=== PATIENT | female | born 1985 | race Caucasian/White ===

== ENCOUNTER → 2021-03-21 | Day surgery (SDC) | payer MEDICARE, OTHER ==
[~2021-03-21] MED LIST: BIOTIN800 MCG PO; CLARITIN 10MG T10 MG PO; DETROL2 MG PO; ELMIRON100 MG PO; IBUPROFEN800 MG PO; LOSARTAN-HCTZ1 EAC2 PO; NAPROXEN 250 M250 MG PO; NORCO 5-325 TA1 EACH PO; ONCE DAILY1 EACH PO; PREMARIN 1.251.25 MG PO; PYRIDIUM200 MG PO; SIMVASTATIN10 MG PO; TOPAMAX100 MG PO; VENLAFAXINE HCL75 MG PO; VITAMIN D32000 UNI1 PO; WELLBUTRIN XL150 MG PO; ZANAFLEX4 MG PO
== END | disposition home or self-care (01) ==
LOC: OR 08:00
DX: K29.71 Gastritis, unspecified, with bleeding (principal); K21.00 Gastro-esophageal reflux disease with esophagitis, without bleeding; K29.80 Duodenitis without bleeding; K64.0 First degree hemorrhoids; E78.00 Pure hypercholesterolemia, unspecified; G47.33 Obstructive sleep apnea (adult) (pediatric); E66.01 Morbid (severe) obesity due to excess calories; Z68.43 Body mass index [BMI] 50.0-59.9, adult; Z87.891 Personal history of nicotine dependence; Z91.012 Allergy to eggs
CPT/HCPCS: J2250; J2704; J7040